=== PATIENT | female | born 1980 | race Asian ===

== ENCOUNTER 2018-12-21 10:13 | Emergency (ER) | payer MEDICAID ==
[~2018-12-21] VITALS: Ht 165.1 cm; Wt 55.4 kg
[2018-12-21 10:24] VITALS: BP 119/68; Ht 165.1 cm; Wt 55.4 kg
== END 2018-12-21 11:32 | disposition home or self-care (01) ==
LOC: ED 10:13
DX: S05.02XA Injury of conjunctiva and corneal abrasion without foreign body, left eye, initial encounter (principal); W22.8XXA Striking against or struck by other objects, initial encounter; Y93.89 Activity, other specified; Y92.89 Other specified places as the place of occurrence of the external cause; Y99.8 Other external cause status